=== PATIENT | male | born 1980 | race Hispanic/Latino ===

== ENCOUNTER 2017-08-19 21:14 | Emergency (ER) | payer SELFPAY ==
[~2017-08-19] VITALS: Ht 152.4 cm; Wt 68.0 kg
[~2017-08-19 21:14] MED LIST: DEPO-MEDROL40 MG/ML IM; TRIAMCINOLON0.11 EX; ULTRAM50 M1 PO
[2017-08-19] MEDS ORDERED: LORTAB 1010 MG PO (23:31)
[2017-08-19] MEDS ORDERED: AMOXICILLIN500 MG PO (23:31)
[2017-08-20] VITALS: BP 120/69
== END 2017-08-20 | disposition home or self-care (01) | DRG 556 ==
LOC: ED 21:14
DX: M25.561 Pain in right knee (principal); S20.212A Contusion of left front wall of thorax, initial encounter; S83.91XA Sprain of unspecified site of right knee, initial encounter; S60.512A Abrasion of left hand, initial encounter; S60.511A Abrasion of right hand, initial encounter; S20.312A Abrasion of left front wall of thorax, initial encounter; W17.89XA Other fall from one level to another, initial encounter; Y93.H3 Activity, building and construction; Y92.89 Other specified places as the place of occurrence of the external cause

== ENCOUNTER 2018-04-15 21:40 | Emergency (ER) | payer SELFPAY ==
[~2018-04-15] VITALS: Ht 152.4 cm; Wt 71.0 kg
[~2018-04-15 21:40] MED LIST changes: +AMOXICILLIN500 MG PO; +LORTAB 1010 MG PO
[2018-04-15 22:02] LABS: HEMATOCRIT 45.4 % (39.0-50.0); HEMOGLOBIN 16.2 g/dl (14.0-18.0); IMMATURE GRANULOCYTES 0.4 % (0.0-5.0); MEAN CELL VOLUME 89.9 fL CALC (80.0-100.0); MEAN CORPUSCULAR HGB 32.1 pG CALC (26.0-32.0); MEAN CORPUSCULAR HGB CONC 35.7 g/L CALC (32.0-36.0); NEUT# 3.74 thou/uL (1.82-7.42); RED BLOOD COUNT 5.05 mill/uL (4.70-6.10)
[2018-04-15 22:13] LABS: ALBUMIN 4.6 g/dL (3.2-5.0); ALKALINE PHOSPHATASE 86 u/l (38-126); ANION GAP 18 (6-22 (CALC)); BILIRUBIN, TOTAL 0.8 mg/dL (0.0-1.4); BUN 13 mg/dL (9-20); BUN/CREATININE RATIO 17 (12-20 (CALC)); CARBON DIOXIDE 23 mmol/l (22-30); CHLORIDE 101 mmol/l (95-108); CREATININE 0.8 mg/dL (0.7-1.3); GFR > 60 ML/MIN (>=60 (CALC)); GFR FOR AFR.AMER. > 60 ML/MIN (>=60 (CALC)); POTASSIUM 3.9 mmol/l (3.5-5.1); SGOT/AST 79 u/l (17-59); SGPT/ALT 109 u/l (21-72); SODIUM 138 mmol/l (137-146); TOTAL PROTEIN 7.7 g/dL (6.3-8.2)
[2018-04-15 22:23] LABS: MYOGLOBIN 37 ng/mL (0 - 121)
[2018-04-15 23:30] LABS: URINE BILIRUBIN - DIPSTICK NEGATIVE (NEGATIVE); URINE BLOOD DIPSTICK NEGATIVE (NEGATIVE); URINE COLOR YELLOW; URINE GLUCOSE - DIPSTICK NEGATIVE (NEGATIVE); URINE KETONE NEGATIVE (NEGATIVE); URINE LEUK ESTERASE NEGATIVE (NEGATIVE); URINE NITRITE - DIPSTICK NEGATIVE (Negative); URINE PH 6.5 (4.5-8.0); URINE PROTEIN - DIPSTICK NEGATIVE (NEG-TRACE); URINE UROBILINOGEN - DIPSTICK 0.2 E.U./dL (0.2)
[2018-04-15 23:33] LABS: URINE CLARITY CLEAR
[2018-04-15 23:33] LABS: TSH, 3RD GENERATION 2.8 uIU/mL (0.47 - 4.68)
[2018-04-15 23:36] LABS: BARBITURATES NEGATIVE (NEGATIVE); COCAINE NEGATIVE (NEGATIVE); METHADONE NEGATIVE (NEGATIVE); OXCYCODONE NEGATIVE (NEGATIVE); TETRAHYDROCANNABIONOL NEGATIVE (NEGATIVE); TRICYLIC ANTIDEPRESSANTS NEGATIVE (NEGATIVE)
[2018-04-16 00:19] VITALS: BP 151/99
== END 2018-04-15 23:59 | disposition left against medical advice (07) | DRG 310 ==
LOC: ED 21:40 → ED-I 22:45 → ED 23:59
PROVIDERS: Emergency Medicine
DX: I47.1 Supraventricular tachycardia (principal); F15.10 Other stimulant abuse, uncomplicated; Z91.19 Patient's noncompliance with other medical treatment and regimen